=== PATIENT | female | born 1980 | race Caucasian/White ===

== ENCOUNTER 2016-06-27 10:36 | Emergency (ER) | payer MEDICAID ==
[2016-06-27] MEDS ORDERED: OPTIRAY 350 100 ML VIAL HMH IV ONE (10:37)
[2016-06-27] MEDS ORDERED: DILAUDID 1 MG/ML AMP ONE ×2 (13:41→15:48)
[2016-06-27] MEDS ORDERED: SODIUM CHLORIDE 0.9% 1,000 ML ONE (13:41)
[2016-06-27] MEDS ORDERED: PROMETHAZINE 25 MG/ML VIAL ONE (13:41)
[2016-06-27] MEDS ORDERED: oxyCODONE/APAP 10/325 TABLET ONE (17:40)
== END 2016-06-27 17:42 | disposition home or self-care (01) ==
LOC: ER 10:36
CPT/HCPCS: 36415; 74177; 96361; 96374; 96375; 96376

== ENCOUNTER 2016-06-28 13:23 | Emergency (ER) | payer MEDICAID | END 2016-06-28 17:47 | disposition home or self-care (01) | LOC: ER 13:23 | CPT/HCPCS: 36415; 80053; 81003; 83690; 84703; 85025; 96361; 96374; 96375 ==

== ENCOUNTER 2016-07-24 18:58 | Emergency (ER) | payer MEDICAID ==
[2016-07-24] MEDS ORDERED: OPTIRAY 350 100 ML VIAL HMH IV ONE (18:59)
[2016-07-24] MEDS ORDERED: DICYCLOMINE 20MG/2ML VIAL IM ONE (20:14)
[2016-07-24] MEDS ORDERED: ONDANSETRON 4 MG VIAL ONE (20:15)
[2016-07-24] MEDS ORDERED: DIPHENHYDRAMINE 50 MG/ML VIAL ONE (21:02)
[2016-07-24] MEDS ORDERED: PROMETHAZINE 25 MG/ML VIAL ONE (21:03)
[2016-07-24] MEDS ORDERED: SODIUM CHLORIDE 0.9% 50 ML IV ONE (21:03)
[2016-07-24] MEDS ORDERED: SODIUM CHLORIDE 0.9% 100 ML IV ONE (22:19)
[2016-07-24] MEDS ORDERED: CEFTRIAXONE 1 GM VIAL ONE (22:20)
[2016-07-25] MEDS ORDERED: DIPHENHYDRAMINE 50 MG/ML VIAL ONE (11:24)
[2016-07-25] MEDS ORDERED: METOCLOPRAMIDE 10 MG/2 ML VIAL ONE (11:24)
[2016-07-25] MEDS ORDERED: SODIUM CHLORIDE 0.9% 2,000 ML ONE (11:25)
== END 2016-07-24 22:54 | disposition home or self-care (01) ==
LOC: ER 18:58
DX: N30.90 Cystitis, unspecified without hematuria (principal); M54.5 Low back pain; G89.29 Other chronic pain; R10.84 Generalized abdominal pain
CPT/HCPCS: 36415; 74177; 80053; 81001; 83605; 83690; 84703; 85025; 87077; 87088; 87186; 96365; 96367; 96372; 96375

== ENCOUNTER 2016-07-25 10:29 | Emergency (ER) | payer MEDICAID | END 2016-07-25 13:27 | disposition home or self-care (01) | LOC: ER 10:29 | DX: R10.84 Generalized abdominal pain (principal) | CPT/HCPCS: 36415; 74022; 80053; 83690; 85025; 96361; 96374; 96375 ==